=== PATIENT | male | born 1975 | race Caucasian/White ===

== ENCOUNTER → 2019-06-14 12:15 | Outpatient (BNVA) | payer OTHER, SELFPAY | PROVIDERS: Visit Provider Emergency Medicine | DX: J11.1 Influenza due to unidentified influenza virus with other respiratory manifestations (principal) | CPT/HCPCS: 87804 ==

== ENCOUNTER → 2022-12-10 10:19 | Outpatient (BNVA) | payer OTHER, SELFPAY | PROVIDERS: PCP Registered Nurse; Visit Provider Registered Nurse | DX: Z00.00 Encounter for general adult medical examination without abnormal findings (principal) | CPT/HCPCS: 80053; 80061; 83036; 85025 ==

== ENCOUNTER 2022-12-20 11:42 | Outpatient (CLI) | payer OTHER, SELFPAY ==
--- NOTE | 2022-12-20 | ECG_ITS ---
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 Interpretive Statements NAME OF STUDY: TREADMILL STRESS TEST INDICATION: Dyspnea on exertion Baseline blood pressure of 123/83 mm Hg, heart rate of 56 beats per minute and oxygen saturation of 95%. EKG showed sinus rhythm, normal axis with normal ST-Ts. ??? The patient exercised for 6 minutes and 19 seconds on a [standard Janusz protocol]. Patient attained a maximum heart rate of 155 beats per minute( 89 % of the maximum predicted heart rate) with a blood pressure at the peak exercise of 179/104 mm Hg and oxygen saturation of 92%. The EKG at the peak exercise revealed sinus tachycardia with 1/2-[address] depression in inferolateral leads (not meeting diagnostic criteria of ischemia) with isolated frequent PVC's. Patient did [not have any chest pain or any significant arrhythmis with the exercise.]??? During the recovery phase, there were no new changes. Frequent PVC couplets and isolated PVC's noted in recovery. ??? Blood pressure at the end of the recovery phase was 152/88 mm Hg with a heart rate of 78 beats per minute and oxygen saturation of 98%. ??? CONCLUSION: 1. Normal EKG response to treadmill exercise. 2. No exercise-induced chest pain. Isolated PVC's and PVC couplets noted in recovery. 3. Good exercise tolerance, attained a maximum of 10.2 METs. 4. Baseline normal blood pressure with normal response to exercise. Electronically Signed On 01-03-2023 22:56:04 CDT by Ethel Cast M.D. [email or web address]
[2022-12-20 12:05] VITALS: BMI 27.1
[2022-12-20 13:45] VITALS: BP 152/82; PULSE 75
== END 2022-12-20 11:43 | disposition home or self-care (01) ==
LOC: CDL 11:45
PROVIDERS: PCP Registered Nurse; Visit Provider Registered Nurse
DX: R07.9 Chest pain, unspecified (principal); Z13.6 Encounter for screening for cardiovascular disorders; Z82.49 Family history of ischemic heart disease and other diseases of the circulatory system
CPT/HCPCS: 80053; 80061; 83036; 85025; 93017

== ENCOUNTER 2023-01-09 07:45 | Day surgery (SDC) | payer OTHER, SELFPAY ==
[2023-01-09] VITALS (13 sets, daily range): BP systolic 136–155; BP diastolic 83–97; PULSE 54–70; RESP 14–20; TEMP 36.1–37.1; O2SAT 91–97
[2023-01-09] MEDS: sodium chloride 0.9% 1,000 ML 30 ML IV (08:23)
--- NOTE | 2023-01-09 09:33 | W.PM.OPSUD ---
Surgery/Procedure H&P Update DATE OF PROCEDURE: January 09, 2023 DATE H&P PERFORMED: 12/17/22 H&P UPDATE INFORMATION: I have reviewed H&P completed within last 30 days, I have examined patient prior to procedure, No changes to prior documentation and H&P is in [facility] EMR on date indicated PLANNED PROCEDURE: Operation Date: 01/09/23 09:25 Proposed Procedures p [id number] Open umbilical hernia repair with mesh k42.9(Not Applicable) - Hugo Sood MD
[2023-01-09] MEDS: ceFAZolin 2,000 MG in sodium chloride 0.9% (plus) 50 ML 100 MG IV (11:20)
[2023-01-09] MEDS: ceFAZolin 1,000 MG in sodium chloride 0.9% (plus) 50 ML 100 MG IV (11:31)
--- NOTE | 2023-01-09 11:31 | ANES.PREANE2 ---
Pre-Anesthetic Assessment Height/Weight: Height 1.83 m Temp Pulse Resp BP Pulse Ox O2 Del Method 97 F L 54 L 16 141/94 97 Room Air 01/09/23 08:09 01/09/23 08:09 01/09/23 08:09 01/09/23 08:09 01/09/23 08:09 01/09/23 08:09 Operation Date: 01/09/23 09:25 Proposed Procedures p 66922 Open umbilical hernia repair with mesh k42.9(Not Applicable) - Hugo Sood MD Familial anesthetic complications: none Was Beta Pineda taken within 24 hours: N/A Was Clonidine taken within 24 hours: N/A Last intake: Intake Last Liquid Date 01/08/23 Last Liquid Time 21:00 Last Solid Date 01/08/23 Last Solid Time 21:00 Social No alcohol and No tobacco Exam alert, oriented x 3, clear to auscultation bilaterally and regular rate & rhythm Airway Submandibular: within normal limits Cervical ROM: within normal limits Mallampati: Class II Dentition: full Metabolic Morbid Obesity Anesthetic Plan ASA status: 2 Anesthesia: General Medications/Allergies Home Medications Medication Instructions Recorded Confirmed Last Taken Type No Known Home Medications 06/14/19 01/08/23 Unknown History Allergies Allergy/AdvReac Type Severity Reaction Status Date / Time No Known Allergies Allergy Verified 01/09/23 08:07 Current Medications Generic Name Dose Route Start Last Admin Trade Name Freq PRN Reason Stop Dose Admin Sodium Chloride 1,000 mls @ 30 mls/hr 01/09/23 08:00 01/09/23 08:23 Sodium Chloride 0.9% IV 01/10/23 07:59 30 mls/hr .Q24H CAM Administration PFSH Anesthesia Family History Brother CAD (coronary artery disease) Myocardial infarction Social History Smoking and tobacco status: never smoked Alcohol intake: current Alcohol intake frequency: holidays/special occasions only Desire information about alcohol rehabilitation?: No Substance/Drug Use: never Lives independently: No Household members: spouse and children Do you think of yourself as: Straight/Heterosexual Current gender identity: Male Data Anesthesia Cardiac Studies: No Data to Display
--- NOTE | 2023-01-09 12:37 | PM.OP ---
Operative Report Date of procedure: January 09, 2023 Pre-op diagnosis: Incarcerated umbilical hernia Post-op diagnosis: same Procedure done: Open umbilical hernia repair with mesh Implants: 6.4cm Bard ventralex Specimens removed/disposition: hernia sac contents. Surgeon: Hugo Sood MD Estimated blood loss: 20 Complications: none Findings: incarcerated umbilical hernia containing omentum, fascial defect measuring 3cm. Brief History: 61-year-old male with a history of a umbilical hernia that has been chronically incarcerated presented to my clinic for evaluation for possible repair. After discussion of the risk and benefits as documented in my clinic note we decided to proceed with open repair. Procedure: Patient was brought into the OR. Placed in the supine position, general esthesia was given. The abdomen was prepped and draped in the usual sterile fashion. Timeout was conducted. Local anesthesia was infiltrated around the hernia. The hernia was not able to be reduced even after anesthesia. 5 cm semilunar infraumbilical incision was then made, the incision was deepened into subcutaneous tissue with electrocautery. The hernia sac was immediately identified we then dissected circumferentially the hernia sac up to the base of the level of the fascia using electrocautery and blunt dissection. At this point we were able to encircle the hernia sac, we then proceeded to separate the umbilical skin from the sac and transected the umbilical stalk this was done with careful dissection and electrocautery to prevent injury of the contents of the sac. The sac was circumferentially dissected around the fascial defect there was noted to be about 3 cm. At this point I decided to open the sac as the contents were unable to be read to us. After the sac was opened and omentum that was chronically incarcerated was noted inside of the hernia sac, this omentum was then resected ligated with #2-0 silk ligatures. The resected omentum was sent as a specimen. The remainder of the omentum and hernia sac was reduced into the abdominal cavity, I verified that no adhesions remain between the fascial edges and the hernia sac contents leaving anterior to the mesh placement. We then introducing the wound a 6.4 cm Ventralex hernia patch. I then proceeded with repair of the hernia defect using 0 Prolene [id number] sutures incorporating the tails of the mesh into the repair to provide reinforcement of the wound. After the repair was completed it was checked and noted to be solid, no evidence of gaps. The wound was irrigated, local anesthesia was infiltrated in the fascia. I then proceeded to tack the umbilicus down to the fascia with a 3-0 Vicryl. 3-0 Vicryl was then used to approximate the subcutaneous tissue, 4 Monocryl was used to close the skin. Dermabond was applied. After these pressure dressing with 4 x 4's and Tegaderm was applied to ensure that the umbilicus will remain into the wound. At the end of the procedure all counts were correct the patient was extubated and transferred to the PACU in stable condition.
[2023-01-09] MEDS: lidocaine-epi 1% 20 mL INJ INJECTION (12:41)
[2023-01-09] MEDS: BUPivacaine 0.25% INJ 10 mL INJECTION (12:41)
--- NOTE | 2023-01-09 13:53 | ANE.PACU2 ---
Inpatient post-anesthesia follow up: Airway intact: Yes Vital signs: Temperature 97.4 F Pulse Rate 57 Respiratory Rate 16 Blood Pressure 153/89 Pulse Oximetry 93 Oxygen Delivery Me thod Nasal Cannula Oxygen Flow Rate 2 Fraction of Inspir ed Oxygen Hydration adequate: Yes Nausea and vomiting: No Pain level: 3 Mental status: Baseline
[2023-01-09] MEDS: oxyCODONE-APAP 5-325 mg Tablet 1 TAB PO (13:56)
[2023-01-09] MEDS: ondansetron 2 mg/ML SDV 2 mL 4 MG IVP (14:08)
== END 2023-01-09 14:40 | disposition home or self-care (01) ==
PROVIDERS: PCP Registered Nurse; Visit Provider Surgery
DX: K42.0 Umbilical hernia with obstruction, without gangrene (principal); E66.01 Morbid (severe) obesity due to excess calories
CPT/HCPCS: 49594; 88302; J0330; J0690; J1100; J1170; J2250; J2405; J2704; J2710; J3010; J3490; J7030